=== PATIENT | male | born 1995 | race African-American/Black ===

== ENCOUNTER 2018-04-07 13:53 | Emergency (ER) | payer MEDICAID ==
[~2018-04-07] VITALS: Ht 190.5 cm; Wt 86.2 kg
[~2018-04-07 13:53] MED LIST: ALBUTEROL2.5 MG/3 M HHN; AZITHROMYCIN250 MG ORAL; BENADRYL ALLERG25 M1 PO; CEPHALEXIN500 MG ORAL; IBUPROFEN800 MG ORAL
[2018-04-07] MEDS ORDERED: AUGMENTIN 500M500 MG ORAL (14:12)
[2018-04-07] MEDS ORDERED: SM PAIN RELIEV PO (14:12)
[2018-04-07 14:40] VITALS: BP 129/88
[2018-04-07] MEDS ORDERED: NS 1000ml 2,600 ML IVLG ONE (15:00)
[2018-04-07] MEDS ORDERED: Ampicillin/Sulbactam Sod 3 GM in NS 110 ML IV SCH (15:00)
[2018-04-07] MEDS ORDERED: Isovue-300 100ml vial INJ PRN (15:00)
[2018-04-07] MEDS ORDERED: Ketorolac 30mg Inj IV ONE (15:15)
[2018-04-07 15:23] LABS: BASOPHILS % (AUTO) 1.5 % (0.0-2.0); EOSINOPHILS % (AUTO) 1.2 % (0.0-3.0); HEMATOCRIT 44.5 % (42.0-52.0); HEMOGLOBIN 15.3 G/DL (14.2-18.0); MEAN CORPUSCULAR VOLUME 87 FL (80-99); NEUTROPHILS % (AUTO) 72.4 % (45.0-75.0); PLATELET COUNT 288 K/UL (150-450); RED CELL DISTRIBUTION WIDTH 10.6 % (11.6-14.8); WHITE BLOOD COUNT 7.6 K/UL (4.8-10.8)
--- NOTE | 2018-04-07 15:26 | Emergency Room Report ---
History of Present Illness General Chief Complaint: Skin Rash/Abscess Source: Patient Present Illness HPI The patient states that he had a very small lump under his right chin that he noticed 2 weeks ago. He states he was seen at [facility] and told he had a salivary gland stone. He states that the symptoms persisted and became more painful and swollen. He states he went again to [facility] last night and was placed on antibiotics for concern of infection around the salivary gland stone. He states that his symptoms continue. He does have pain with swallowing but denies difficulty breathing. He denies fever or chills. He denies nausea or vomiting. He has had a similar issue 2 years ago where he required an incision and drainage of that area at that time. He states that this is similar. He has no other complaints. Allergies: Coded Allergies: No Known Allergies (Unverified , 04/19/14) Patient History Past Medical History: none Past Surgical History: none Social History: Denies: smoking, alcohol use, drug use Reviewed Nursing Documentation: PMH: Agreed; PSxH: Agreed Nursing Documentation-PMH Past Medical History: No Stated History Review of Systems All Other Systems: negative except mentioned in HPI Physical Exam Vital Signs Date Time Temp Pulse Resp B/P (MAP) Pulse Ox O2 Delivery O2 Flow Rate FiO2 04/07/18 14:06 98.0 73 18 129/88 98 Room Air 98.1 Sp02 EP Interpretation: reviewed, normal General Appearance: no apparent distress, alert, GCS 15, non-toxic Head: normocephalic, atraumatic Eyes: bilateral eye normal inspection, bilateral eye PERRL ENT: hearing grossly normal, no angioedema, normal voice, other - +swelling of the subglossal space. +erythema Neck: full range of motion, supple/symm/no masses, other - A small amount of submandibular swelling. Respiratory: chest non-tender, lungs clear, normal breath sounds, no respiratory distress, no retraction, no accessory muscle use, speaking full sentences Cardiovascular #1: regular rate, rhythm, no edema Gastrointestinal: normal bowel sounds, non tender, soft, non-distended, no guarding, no rebound Rectal: deferred Musculoskeletal: back normal, gait/station normal, normal range of motion, non- tender Neurologic: alert, oriented x3, responsive, motor strength/tone normal, sensory intact, speech normal Psychiatric: judgement/insight normal, memory normal, mood/affect normal, no suicidal/homicidal ideation Skin: normal color, no rash, warm/dry, well hydrated Medical Decision Making Diagnostic Impression: Primary Impression: Sialolith Additional Impression: Sublingual gland swelling ER Course This patient is found to have a dilated sublingual duct and 1.7 x 1 cm stone. This is consistent with a sublingual gland sialolith. There is no evidence of abscess or infection. The patient is on Augmentin and he was instructed to continue these antibiotics. I discussed the case with the on-call ear nose and throat physician. He recommended that this patient be seen by an pearl digger within the next 24-48 hours for reassessment and possible removal of the sialolith. Dr. Baca was the specialist I discussed this case with. The patient and the parent were instructed to see an pearl digger in the next 24-48 hours. They state that they may go to [facility] right now given that this hospitalization their network further insurance company. Overall, the patient is well-appearing and nontoxic. He was educated on close return precautions and follow-up instructions. Laboratory Tests Test 04/07/18 15:03 White Blood Count 7.6 K/UL (4.8-10.8) Red Blood Count 5.10 M/UL (4.70-6.10) Hemoglobin 15.3 G/DL (14.2-18.0) Hematocrit 44.5 % (42.0-52.0) Mean Corpuscular Volume 87 FL (80-99) Mean Corpuscular Hemoglobin 30.1 PG (27.0-31.0) Mean Corpuscular Hemoglobin Concent 34.5 G/DL (32.0-36.0) Red Cell Distribution Width 10.6 % (11.6-14.8) L Platelet Count 288 K/UL (150-450) Mean Platelet Volume 7.0 FL (6.5-10.1) Neutrophils (%) (Auto) 72.4 % (45.0-75.0) Lymphocytes (%) (Auto) 19.0 % (20.0-45.0) L Monocytes (%) (Auto) 6.0 % (1.0-10.0) Eosinophils (%) (Auto) 1.2 % (0.0-3.0) Basophils (%) (Auto) 1.5 % (0.0-2.0) Sodium Level 138 MMOL/L (136-145) Potassium Level 4.8 MMOL/L (3.5-5.1) Chloride Level 102 MMOL/L (98-107) Carbon Dioxide Level 29 MMOL/L (21-32) Anion Gap 8 mmol/L (5-15) Blood Urea Nitrogen 12 mg/dL (7-18) Creatinine 1.1 MG/DL (0.55-1.30) Estimate Glomerular Filtration Rate > 60 mL/min (>60) Glucose Level 88 MG/DL (74-106) Lactic Acid Level 1.50 mmol/L (0.4-2.0) Calcium Level 9.3 MG/DL (8.5-10.1) Total Bilirubin 0.6 MG/DL (0.2-1.0) Aspartate Amino Transferase (AST) 14 U/L (15-37) L Alanine Aminotransferase (ALT) 17 U/L (12-78) Alkaline Phosphatase 68 U/L (46-116) Total Protein 7.7 G/DL (6.4-8.2) Albumin 3.7 G/DL (3.4-5.0) Globulin 4.0 g/dL Albumin/Globulin Ratio 0.9 (1.0-2.7) L CT/MRI/US Diagnostic Results CT/MRI/US Diagnostic Results : Imaging Test Ordered: CT max/facial Impression In the right aspect of the floor of the mouth there is a tubular ovoid focus of low attenuation measuring 3.7 x 1.6 cm representing a dilated sublingual duct, likely obstructed. This focus contains a 1.7 x 1 cm stone consistent with sialoadenitis. Last Vital Signs Date Time Temp Pulse Resp B/P (MAP) Pulse Ox O2 Delivery O2 Flow Rate FiO2 04/07/18 14:40 98.1 18 129/88 98 Room Air 98.1 04/07/18 14:06 73 Status: improved Disposition: HOME, SELF-CARE Condition: Improved Referrals: NOT CHOSEN IPA/MD,REFERRING (PCP) Additional Instructions: Please see an pearl digger within the next 2 days. Continue the oral antibiotics you are currently on. Char Marquez DO Apr 07, 2018 15:25
[2018-04-07 15:35] LABS: ANION GAP 8 mmol/L (5-15); BLOOD UREA NITROGEN 12 mg/dL (7-18); CALCIUM 9.3 MG/DL (8.5-10.1); CARBON DIOXIDE 29 MMOL/L (21-32); CHLORIDE 102 MMOL/L (98-107); CREATININE 1.1 MG/DL (0.55-1.30); POTASSIUM 4.8 MMOL/L (3.5-5.1); SODIUM 138 MMOL/L (136-145)
[2018-04-07 15:40] LABS: ALANINE AMINOTRANSFERASE 17 U/L (12-78); ALBUMIN 3.7 G/DL (3.4-5.0); ALBUMIN/GLOBULIN RATIO 0.9 (1.0-2.7); ALKALINE PHOSPHATASE 68 U/L (46-116); ASPARTATE AMINO TRANSFERASE 14 U/L (15-37); BILIRUBIN,TOTAL 0.6 MG/DL (0.2-1.0)
--- NOTE | 2018-04-07 16:23 | Diagnostic Imaging Report ---
Indication: Some mandibular and facial pain and swelling. Technique: Continuous helical transaxial imaging of the maxillofacial structures obtained after intravenous contrast administration. Coronal 2-D reformats were also obtained. Study obtained in a Siemens sensation [address] Total Dose length Product (DLP): 613.[address] Dose Index Volume (CTDIvol): 28.19 mGy Comparison: None Findings: The paranasal sinuses are clear. The area of the submandibular gland is unremarkable. There is no evidence of abscess. There are nodes present in the submandibular space and in the sublingual region especially on the right side. The visualized part of the nasopharynx and oropharynx appears normal. The epiglottis is unremarkable. Visualized part of the aryepiglottic folds only complex partially imaged on this study appear normal. The valleculae appear unremarkable. Parapharyngeal fat is symmetric. Osseous structures are unremarkable. The mastoids are clear bilaterally. IMPRESSION: Some adenopathy noted in the submandibular regions bilaterally presumably inflammatory in nature. Correlate clinically. No abscess identified
[2018-04-07] MEDS ORDERED: ACETAMINOPHEN-1 EAC1 ORAL (17:24)
[2018-04-07 18:19] VITALS: BP 123/77
--- NOTE | 2018-04-08 19:18 | Cardiology Report ---
APPROVED REPORT EKG Measurement Heart [id number] Normal sinus rhythm with sinus arrhythmia ST elevation, probably due to early repolarization Borderline ECG
== END 2018-04-07 17:36 | disposition home or self-care (01) ==
LOC: EMR 14:52
DX: K11.5 Sialolithiasis (principal); R59.0 Localized enlarged lymph nodes
CPT/HCPCS: 36415; 70487; 80053; 83605; 85025; 87040; 93005; 96365; 96366; 96375; 99284; J0295; J1885; Q9967

== ENCOUNTER 2018-09-11 14:53 | Emergency (ER) | payer MEDICAID ==
[~2018-09-11] VITALS: Ht 190.5 cm; Wt 81.6 kg
[~2018-09-11 14:53] MED LIST changes: +ACETAMINOPHEN-1 EAC1 ORAL; +AUGMENTIN 500M500 MG ORAL; +SM PAIN RELIEV PO
[2018-09-11 15:20] VITALS: BP 136/90
--- NOTE | 2018-09-11 15:20 | NUR ---
ED Nurse Note: AMBULATED IN TO ER DUE TO RASH OVER FACE AND BACK X 6 DAYS. SEEN BY PRAKASH 4 DAYS AGO AND HAS BEEN TAKING ZYRTEC.
[2018-09-11] MEDS ORDERED: ZYRTEC10 MG ORAL (15:22)
--- NOTE | 2018-09-11 16:07 | Emergency Room Report ---
History of Present Illness General Chief Complaint: Skin Rash/Abscess Source: Patient Present Illness HPI 22-year-old male presents to the emergency department complaining of rash on the face, torso, upper extremities 1 week. Patient reports that he was evaluated and prescribed a shampoo to use as well as Benadryl and Zyrtec. Patient reports that his symptoms have gotten worse since their initial onset. Patient states that the medications are not helping. Patient denies itching. Pt. denies fevers, chills or swollen tender lymph nodes. Denies lesions/rashes on palms or soles. Denies new medications or body washes or creams. Denies swelling of the lips, tongue , throat or airway. Denies wheezing, or shortness of breath. Denies recent travel, recent illness or ill contacts. denies blisters, oral lesions, or sloughing of the skin. Denies pain at this time. Allergies: Coded Allergies: No Known Allergies (Unverified , 04/19/14) Patient History Past Medical History: see triage record Past Surgical History: none Pertinent Family History: none Reviewed Nursing Documentation: PMH: Agreed; PSxH: Agreed Nursing Documentation-PMH Past Medical History: No Stated History Review of Systems All Other Systems: negative except mentioned in HPI Physical Exam Vital Signs Date Time Temp Pulse Resp B/P (MAP) Pulse Ox O2 Delivery O2 Flow Rate FiO2 09/11/18 15:18 98.4 99 16 136/90 98 Room Air Medical Decision Making PA Attestation Dr. Garcia is my supervising Physician whom patient management has been discussed with. Diagnostic Impression: Primary Impression: Rash and other nonspecific skin eruption ER Course 22-year-old male presents to the emergency department complaining of rash on the face, torso, upper extremities 1 week. Patient reports that he was evaluated and prescribed a shampoo to use as well as Benadryl and Zyrtec. Patient reports that his symptoms have gotten worse since their initial onset. Patient states that the medications are not helping. Patient denies itching. Pt. denies fevers, chills or swollen tender lymph nodes. Denies lesions/rashes on palms or soles. Denies new medications or body washes or creams. Denies swelling of the lips, tongue , throat or airway. Denies wheezing, or shortness of breath. Denies recent travel, recent illness or ill contacts. denies blisters, oral lesions, or sloughing of the skin. Denies pain at this time. Ddx considered but are not limited to cellulitis, scabies, shingles, varicella, dermatitis, urticaria, eczema, tinea, viral exanthem, SJS Vital signs: are WNL, pt. is afebrile H&PE are most consistent with nonspecific dermatitis, not consistent with bacterial infection. ORDERS: none required at this time, the diagnosis is clinical ED INTERVENTIONS: None required at this time. DISCHARGE: At this time pt. is stable for d/c to home. Will provide printed patient care instructions, and any necessary prescriptions. Care plan and follow up instructions have been discussed with the patient prior to discharge. Last Vital Signs Date Time Temp Pulse Resp B/P (MAP) Pulse Ox O2 Delivery O2 Flow Rate FiO2 09/11/18 15:20 98.4 99 16 136/90 98 Room Air Disposition: HOME, SELF-CARE Condition: Stable Patient Instructions: Rash Additional Instructions: Take medications as directed. Follow up with a Primary Care Provider in 3-5 days for DERMATOLOGY REFERRAL , even if your symptoms have resolved. --Please review list of primary care clinics, if you do not already have a primary care provider Return sooner to ED if new symptoms occur, or current symptoms become worse. - Please note that this Emergency Department Report was dictated using [employer] ski patroller technology software, occasionally this can lead to erroneous entry secondary to interpretation by the dictation equipment. Ava Burns Sep 11, 2018 16:07
[2018-09-11] MEDS ORDERED: XOLEGEL45 GM TOPIC (16:09)
[2018-09-11] MEDS ORDERED: PREDNISONE20 MG ORAL (16:09)
[2018-09-11 16:20] VITALS: BP 136/90
--- NOTE | 2018-09-11 16:21 | NUR ---
ER Nurse Note: A/OX4. PT IS CLEARED BY JOHN PEREZ. DC INSTRUCTION AND PRESCRIPTIONS GIVEN, PT VERBALIZED UNDERSTSANDING. IV/ID WRISTBAND REMOVED. ALL BELONGINGS TAKEN BY PT. DENIES ANY PAIN AT THIS TIME. PT AMBULATED OUT OF ER WITH STEADY GAIT.
== END 2018-09-11 16:21 | disposition home or self-care (01) ==
LOC: EMR 15:52
DX: R21 Rash and other nonspecific skin eruption (principal)
CPT/HCPCS: 99282; J7512